=== PATIENT | male | born 1985 | race Caucasian/White ===

== ENCOUNTER 2020-08-11 12:06 | Inpatient (IN) | payer BC, SELFPAY ==
[2020-08-11 12:24] VITALS: BP 131/74; PULSE 74; RESP 20; TEMP 37; O2SAT 97
[2020-08-11 12:25] VITALS: BMI 27.1
[2020-08-11 14:00] VITALS: BP 131/74; PULSE 74; RESP 20; TEMP 37
[2020-08-11] MEDS: nicotine 2 mg Gum BUCCAL (15:21)
[2020-08-11 20:04] VITALS: BP 110/70; PULSE 67; RESP 20; TEMP 36.5; O2SAT 98
--- NOTE | 2020-08-11 23:21 | PC.NURSE ---
PT NOTED WITH INCREASED ACTIVITY AND ANXIETY WHILE IN THE DAY ROOM. PT OFFERED ATIVAN 2MG PO PER CIWA PROTOCOL, HOWEVER, PT REFUSED MED STATING I DON'T WANT TO TAKE ANYTHING THAT IS MIND ALTERING . PT EDUCATED THAT MED WOULD HELP HIM TO REST. PT STATED I'M JUST NOT SLEEPY ! PT EDUCATED THAT IF HE CHANGES HIS MIND, IT IS AVAILABLE.
[2020-08-12 05:54] VITALS: BP 112/71; PULSE 93; RESP 20; TEMP 36.8; O2SAT 97
--- NOTE | 2020-08-12 08:36 | PC.NURSE ---
refused scheduled Multivitamin, thiamine, folic acid
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
[2020-08-12 14:00] VITALS: BP 123/74; PULSE 76; RESP 18; TEMP 37.2; O2SAT 18
[2020-08-12] MEDS: nicotine 2 mg Gum BUCCAL ×2 (16:00→20:37)
[2020-08-12 21:07] VITALS: BP 135/85; PULSE 68; RESP 20; TEMP 36.9; O2SAT 99
[2020-08-13 06:00] VITALS: BP 123/77; PULSE 80; RESP 18; TEMP 36.6; O2SAT 97
[2020-08-13] MEDS: nicotine 2 mg Gum BUCCAL ×4 (06:18→21:31)
[2020-08-13 14:00] VITALS: BP 139/81; PULSE 82; RESP 18; TEMP 37.2; O2SAT 98
--- NOTE | 2020-08-13 18:59 | P.PN_ITS ---
Subjective NPU Subjective: Interval history: Hiro presents today reporting that he is feeling better further he gets away from that intoxication. He had an opportunity to talk to his and she is supportive of them looking at ways to address some of his issues. The gun has been removed and is in his [id number]'s care. He still has some lack of insight into the seriousness of his behavior but continues to endorse a willingness to work with his to make sure they have accountability in his mental health, alcohol use and in their relationship. We talked about considering discharge tomorrow. Mental Status Exam MSE Comments: This is a well-nourished well-developed white male in hospital scrubs with adequate grooming and eye contact. No abnormal movements. Cooperative examined no acute distress. Speech was normal rate and volume. Mood described as better, affect congruent. Thought process organized. Thought content: Patient denied suicidal or homicidal ideation, there were no delusions reported noted, he denied any auditory or visualizations. Attention and concentration were intact and memory appeared reliable but none were formally tested. He is alert and oriented x3. Insight and judgment appeared limited, but improving, impulse control appears fair. Vitals/I&O/Wt Last Vital Signs Temp 97.9 F 08/13/20 20:15 Pulse 85 08/13/20 20:15 Resp 20 H 08/13/20 20:15 BP 143/85 08/13/20 20:15 Pulse Ox 98 08/13/20 20:15 A&P Additional A&P Information (1) Alcohol abuse: (2) Alcohol intoxication: (3) Marital/partner relational problem: (4) Suicide gesture: (5) Adjustment disorder with mixed disturbance of emotions and conduct: Additional A&P Information This is a 34-year-old white male with a distant history of mental health treatment and a psychiatric evaluation while in the who presents endorsing daily alcohol use, conflict with his and recent suicidal gesture involving an AR 15. 1. Continue current medication. 2. Continue every 15 minute checks for safety. 3. Encourage individual, group and milieu therapies. 4. Encourage sober living treatment after discharge at the highest level of care to which he is willing to commit. 5. We will gather collateral information and to get a better understanding of the events surrounding the AR 15 and determine if medication is indicated and evaluate for safety for discharge. Involuntary Hold Information 96 Hour Hold: 96 Hour Involuntary Admission: Yes 96 Hour Hold Ending Date: 08/15/20 96 Hour Hold Ending Time: 11:53 Attestations NPU Medical Necessity Statement*: Inpatient hospitalization is medically necessary and the clinically appropriate intervention at this time. We will monitor medications and make changes as indicated. Likely length of stay 1-3 days. Coding Level of Care Code Acute Beach Attendant for Jose Sanchez
[2020-08-13 20:15] VITALS: BP 143/85; PULSE 85; RESP 20; TEMP 36.6; O2SAT 98
[2020-08-14 05:59] VITALS: BP 116/77; PULSE 87; RESP 20; TEMP 36.5; O2SAT 98
[2020-08-14 06:07] VITALS: BP 99/56; PULSE 68; RESP 17; TEMP 36.8; O2SAT 99
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
[2020-08-14 08:23] VITALS: BP 99/56; PULSE 68; RESP 17; TEMP 36.8; O2SAT 99
== END 2020-08-14 09:16 | disposition home or self-care (01) | DRG 882 ==
PROVIDERS: Admitting Provider Psychiatry & Neurology Psychiatry; Visit Provider Psychiatry & Neurology Psychiatry
DX: F43.25 Adjustment disorder with mixed disturbance of emotions and conduct (principal); R45.851 Suicidal ideations; F17.210 Nicotine dependence, cigarettes, uncomplicated; F10.129 Alcohol abuse with intoxication, unspecified; Z63.0 Problems in relationship with spouse or partner